=== PATIENT | male | born 1945 | race Caucasian/White ===

== ENCOUNTER 2016-06-30 05:03 | Emergency (ER) | payer MEDICARE, OTHER ==
[~2016-06-30 05:03] MED LIST: ASPI325T32 PO; ATOR80TA77 PO; CLOP75TA3 PO; DOXA2TAB52 PO; METO25TA6 PO; NITR0.4T SL; ZOLP10TA5 PO
[2016-06-30 05:05] VITALS: BP 187/113; PULSE 97; RESP 14; O2SAT 97
--- NOTE | 2016-06-30 05:08 | ED.REPORT ---
HPI-Abd Pain M 40 and Over Date of Service Jun 30, 2016 ED Provider: Cruz Villanueva MD Patient is a 70 year old male with a history of an enlarged prostate who presents to the ED complaining of urinary retention, last urinating at 11pm last night. The patient presents to the ED complaining of abdominal distention and abdominal pain. The patient tried to urinate several times this morning but was unable to. He retained urine previously following an DE. The patient was seen by Dr. Cadena following this incident and was started on Flomax. The patient is still taking this medication and has an appointment to see Dr. Cadena on July 03. The patient also has an upcoming appointment at the to discuss possible cardiac intervention. The patient denies fever, nausea, vomiting, or dysuria. Nursing Notes Stated Complaint: URINARY RETENTION Chief Complaint: Male Abdominal Pain Nursing Notes Reviewed: Yes Allergies: Coded Allergies: CHARLES Inhibitors (Unverified Allergy, Mild, 06/30/16) Pt and cannot confirm this 09/24/13. indomethacin (Verified Allergy, Mild, 06/30/16) Beta-Blockers (Beta-Adrenergic Bloc (Verified Adverse Reaction, Mild, Shortness of Breath, 06/30/16) wheezy if dose increased rapidly Scheduled Aspirin (Aspirin) 325 Mg Tablet 325 MG PO DAILY Atorvastatin Calcium (Atorvastatin Calcium) 80 Mg Tablet 80 MG PO HS Clopidogrel Bisulfate (Plavix) 75 Mg Tablet 75 MG PO DAILY Doxazosin (Cardura) 2 Mg Tablet 1 MG PO HS Metoprolol Tartrate (Metoprolol Tartrate) 25 Mg Tablet 25 MG PO BID Scheduled PRN Nitroglycerin SL (Nitrostat) 0.4 Mg Tab.subl 0.4 MG SL Q5MIN PRN PRN For Chest Pain Zolpidem (Zolpidem) 10 Mg Tablet 5 MG PO HS PRN PRN For Insomnia General Time Seen by MD: 05:07 Chief Complaint Unable to urinate Hx Obtained From: Patient Arrived By: Walk-in Sudden in Onset?: No Onset Occurred: 5 - 8 hours ago Symptom Duration: Since onset Location: : Abdomen lower Quality: Painful Severity: Current: Moderate Severity: Maximum: Moderate Recent Healthcare: No recent doctor visit, No recent hospitalization Similar Sx Previous: Yes Past Medical History Past Medical History DE 3x, 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 Physical Exam Initial Vital Signs Vital Signs (First) Date Time Temp Pulse Resp B/P Pulse Ox O2 Delivery O2 Flow Rate FiO2 06/30/16 05:05 97 14 187/113 97 Room Air Initial VS: Reviewed Head / Eyes: Atraumatic, Normocephalic, PERRL ENT: Conjunctiva normal, No scleral icterus Neck: Supple, Full range of motion Skin: Warm, Dry, No cyanosis Neurologic: Alert, Oriented, Nonfocal Psychiatric: Mood/affect normal, Behavior normal, Normal thought content General/Constitutional: Awake, Alert, No acute distress Respiratory / Chest: Breath sounds NL, Breath sounds = bilat, No respiratory distress, No rales, No rhonchi, No wheezing Cardiovascular: Heart rate NL, Regular rhythm, Heart sounds NL, No murmurs Abdomen: Soft, Non-tender, No distention ((following drainage)) Back: not examined Interpretation & Diagnostics Lab Results Interpretation Test 06/30/16 05:25 06/30/16 05:30 Hold Urine Received (Received) Urine Color Straw (YELLOW) Urine Appearance Hazy (CLEAR,HAZY) Urine pH 5.0 (5.0-8.0) Urine Specific [place] 1.015 (1.003-1.035) Urine Protein Negativemg/dL (NEG,TRACE) Urine Glucose (UA) Negativemg/dL (NEGATIVE) Urine Ketones Negativemg/dL (NEGATIVE) Urine Occult Blood Large (NEGATIVE) Urine Nitrite Negative (NEGATIVE) Urine Bilirubin Negative (NEGATIVE) Urine Urobilinogen Normalmg/dL (NORMAL) Urine Leukocyte Esterase Negative (NEGATIVE) Urine RBC >50/hpf (0-2) Urine WBC 0-5/hpf (0-5) Urine Epithelial Cells None/hpf (NONE-MOD) Urine Crystals None seen (NONE SEEN) Urine Bacteria Few/hpf (NONE-FEW) Urine Hyaline Casts None/lpf (NONE) Urine Granular Casts None seen (NONE SEEN) Urine Waxy Casts None seen (NONE SEEN) Urine Red Blood Cell Casts None seen (NONE SEEN) Urine White Blood Cell Casts None seen (NONE SEEN) Urine Mucus None seen (None Seen) Urine Trichomonas None seen (NONE SEEN) Urine Yeast None (NONE SEEN) Urinalysis Comment None Urine Culture Reflexed Not indicated Re-Eval/Medical Decision Med Decision/Clinical Course 70-year-old presents with urinary retention and acute onset tonight. He was relieved by Camacho catheter. No evidence of urinary tract infection. Already a patient of Dr. Cadena's. He is provided with a large bag and a leg bag with Camacho in place, and referred back to Dr. Cadena. Source of Hx: Old records Time of Eval: 05:37 Patient Status: Condition improved Re-Evaluation/Progress Note: Patient will be discharged with his catheter in place. He is improved. Patient understands and agrees with the plan to be discharged home. Discharge instructions and follow-up discussed. All questions were addressed. Return to the ED warnings given. Counseled Regarding: Diagnosis, Need for follow-up, When/why to return to ED Discharge & Departure Primary Impression: Urinary retention Disposition: Home Vital Signs - All Vital Signs Date Time Temp Pulse Resp B/P Pulse Ox O2 Delivery O2 Flow Rate FiO2 06/30/16 05:05 97 14 187/113 97 Room Air )( All Prior VS Reviewed: Yes Condition: Stable Patient Instructions: Urinary Retention in Men (ED) Additional Instructions: Leave Camacho in place. Use large bag by night, and leg bag by day. Follow-up with Dr. Cadena on Friday as planned. Call his office Friday morning to notify them of your visit tonight. Follow up with your slot host as planned. Referrals: Nida Cadena MD Attestation Portions of this note were transcribed by Mari Gonzales. I, Dr. Villanueva personally performed the history, physical exam and medical decision-making; I reviewed and confirmed the accuracy of the information in the transcribed note. Signed by: Zulay Mena, 06/30/2016 0546 copies to: Nida Cadena MD, Christopher W MD Jun 30, 2016 05:08 Mari Gonzales Jun 30, 2016 05:12
[2016-06-30] MEDS ORDERED: Lidocaine 2% 6mL Topical Jelly ONE (05:12)
[2016-06-30 05:50] LABS: APPEARANCE,URINE HAZY (CLEAR,HAZY); COLOR,URINE STRAW (YELLOW)
[2016-06-30 05:51] LABS: OCCULT BLOOD,URINE LARGE (NEGATIVE); UROBILINOGEN,URINE NORMAL (NORMAL)
== END 2016-06-30 05:55 | disposition home or self-care (01) ==
LOC: SED 05:03
DX: R33.9 Retention of urine, unspecified (principal); N40.1 Benign prostatic hyperplasia with lower urinary tract symptoms; I10 Essential (primary) hypertension; E78.5 Hyperlipidemia, unspecified; I25.10 Atherosclerotic heart disease of native coronary artery without angina pectoris; Z79.82 Long term (current) use of aspirin; Z88.8 Allergy status to other drugs, medicaments and biological substances